=== PATIENT | male | born 1970 ===

== ENCOUNTER 2016-08-02 10:01 | Day surgery (SDC) | payer BC, OTHER ==
--- NOTE | 2016-07-28 03:17 | HP ---
PREOPERATIVE HISTORY AND PHYSICAL: DATE OF SURGERY/ADMISSION: 08/02/16 [facility] DATE OF OFFICE VISIT/ENCOUNTER: 07/27/16 ATTENDING SURGEON: Bambi Keita MD PROCEDURE: Left wrist carpal tunnel release. CHIEF COMPLAINT: Numbness and tingling in the left hand. 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 He complains of 3 months of tingling and numbness in his left hand. He has a history of similar symptoms on the right for which he has had a right carpal tunnel release and he did very well with that. The numbness and tingling in his left hand involves the thumb, index, and middle fingers. He does not recall any injury. Symptoms bother him at night time when he is trying to sleep and he is often time awakened. The patient has a history of a pulmonary embolism in 2006 and he is on Coumadin. He will remain on the Coumadin perioperatively. PAST MEDICAL HISTORY: 1. Protein S deficiency. 2. Pulmonary embolism in 2006. PAST SURGICAL HISTORY: Right carpal tunnel release. CURRENT MEDICATIONS: Warfarin 7.5 mg per day. ALLERGIES: None. FAMILY HISTORY: Noncontributory. 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 He denies tobacco, recreational drug use, and alcohol use. REVIEW OF SYSTEMS: General: Negative for fevers, chills, or night sweats. No known anesthesia problems. HEENT: Negative for headache, lightheadedness, or syncopal episodes. Integumentary: Negative for abrasions, lesions, or open wounds. Cardiothoracic: Negative for chest pain, palpitations, edema and hypertension. Pulmonary: Negative for shortness of breath with exertion, chronic cough, or COPD. GI: Negative for nausea, vomiting, diarrhea, constipation, and GERD. : Negative for nocturia, urinary frequency, urgency , history of UTIs, or kidney problems. Musculoskeletal: Positive for current complaint. Negative for chronic or intermittent back pain. No history of fractures. Neurological: Negative for paraesthesias, numbness, history of seizure, stroke, or epilepsy. Endocrine: Negative for diabetes or thyroid issues. Hematologic: Positive for protein S deficiency. Positive for history of PE in 2006. Negative for easy bruising, anemia, excessive bleeding. Infectious Disease: Negative for history of MRSA, hepatitis C, or HIV. PHYSICAL EXAMINATION GENERAL: Well-developed, well-nourished 45-year-old male, in no acute distress. VITAL SIGNS: Height 5 feet 10 inches, weight 355 pounds, pulse rate 76, blood pressure 132/76. HEENT: Normocephalic, atraumatic. Pupils are equal, round, and reactive to light and accommodation. Extraocular movements are intact. NECK: Supple. No palpable lymph nodes. Throat is clear. PULMONARY: Lungs are clear to auscultation bilaterally. No wheezes, rales, or rhonchi. CARDIOTHORACIC: Regular rate and rhythm. S1, S2. No murmurs, rubs, or gallops. No edema. ABDOMEN: Positive bowel sounds, soft, nontender. MUSCULOSKELETAL: On exam of the left upper extremity and the left hand, there is no thenar wasting. There is some weakness with thumb abduction. He has a positive median nerve compression test. Negative Tinel's sign, positive Phalen' s test. He has intact sensation to his median nerve distribution. NEUROLOGICAL: Alert and oriented x3. Cranial nerves II through XII are intact. Sensation is intact to light touch. IMPRESSION: Left carpal tunnel syndrome. PLAN: The patient is scheduled to undergo a left wrist carpal tunnel release with Dr. Keita on 08/02/16. He will return to the office in 10 to 14 days postop for followup and suture removal. A prescription for Ultracet was e- scribed to the patient's pharmacy for postoperative pain management. YAYA CASTRO [id number]/[facility] #: [id number] JOSE
[~2016-08-02 10:01] MED LIST: Buffered Lidocaine 1% SYR 3ML* 3 ML/SYR SYRINGE INTRADERM ONE; Lidocaine 1% INJ* 10 MG/ML 30 ML SDV ONE
[2016-08-02] MEDS ORDERED: Midazolam* 1 MG/ML 2 ML VIAL (2 MG) ONE (10:57)
[2016-08-02] MEDS ORDERED: fentaNYL* 50 MCG/ML 2 ML VIAL (100 MCG VIAL) ONE (10:57)
[2016-08-02] MEDS ORDERED: Propofol* 10 MG/ML 20 ML BTL IV PUSH ONE (11:17)
[2016-08-02 13:02] VITALS: BP 133/70
[2016-08-02] MEDS ORDERED: Ibuprofen TAB* 600 MG ONE (13:04)
--- NOTE | 2016-08-03 01:47 | OP ---
DATE OF OPERATION: 08/02/16 [facility] DATE OF : 74 SURGEON: Bambi Keita MD [employer] MANAGER: YAYA Chaidez ANESTHESIOLOGIST: Herbert Regalado MD ANESTHESIA: Local, MAC. PRE-OP DIAGNOSIS: Left carpal tunnel syndrome. POST-OP DIAGNOSIS: Left carpal tunnel syndrome. OPERATIVE PROCEDURE: Left carpal tunnel release. ESTIMATED BLOOD LOSS: Zero. TOURNIQUET TIME: About 8 minutes. INDICATIONS: Ruddy is a 45-year-old male with numbness and tingling in the median nerve distribution of his left hand. Clinically, and by EMG, he has carpal tunnel syndrome. He presents for left carpal tunnel release. DESCRIPTION OF PROCEDURE: The patient was brought to the operating room. He was given a sedation anesthetic and a local infiltration of 10 cc of 1% plain lidocaine into the palm of his left hand. The skin of his left hand and forearm was prepped and draped in the usual sterile fashion. The hand and forearm were exsanguinated and the tourniquet elevated to 250 mmHg. A longitudinal incision was made in the palm in line with the ring finger. Dissected sharply through the subcutaneous tissue down to the transverse carpal ligament. The ligament was divided sharply with the knife and then more proximally with the scissors. The nerve was dissected free from the surrounding tissue and there was an area of significant compression in the distal portion of the ligament. The wound was irrigated, and the skin edges were reapproximated with 4-0 nylon suture. The wound was dressed with Xeroform , 4x4, Webril, and an Asher wrap. The patient tolerated the procedure well and was brought to the recovery room in good condition. [id number]/[facility] [place] #: [id number] [facility]
== END 2016-08-02 13:12 | disposition home or self-care (01) ==
LOC: OREAST 10:01
PROVIDERS: ATTEND Orthopaedic Surgery
DX: G56.02 Carpal tunnel syndrome, left upper limb (principal); G47.33 Obstructive sleep apnea (adult) (pediatric); I10 Essential (primary) hypertension; Z86.711 Personal history of pulmonary embolism; Z79.01 Long term (current) use of anticoagulants
CPT/HCPCS: A9270-GY; J2250; J2704; J3010